=== PATIENT | male | born 1995 | race Caucasian/White ===

== ENCOUNTER 2024-03-26 10:03 | Emergency (ER) | payer BC, OTHER ==
[2024-03-26] MEDS ORDERED: methylPREDNISolone Sod Succ/PF 125 MG/2 ML VIAL ONE (10:25)
[2024-03-26 10:48] LABS: #Basophils 0.01 10x3/uL (0.0-0.2); #Eosinophils 0.19 10x3/uL (0.0-0.5); #Monocytes 0.85 10x3/uL (0.0-1.1); #Neutrophils 5.55 10x3/uL (1.5-8.4); %Basophils 0.1 % (0.0-2.0); %Eosinophils 2.6 % (0.0-6.0); %Lymphocytes 10.3 % (18.0-47.0); %Monocytes 11.5 % (0.0-10.0); %Neutrophils 75.2 % (40.0-75.0); Hematocrit 43.7 % (38.8-50.0); Hemoglobin 14.7 g/dL (13.5-17.5); Mean Corpuscular HGB CONC 33.6 g/dL (32.0-36.0); Mean Corpuscular Hemoglobin 29.5 pg (27.0-33.0); Mean Corpuscular Volume 87.6 fL (81.2-95.1); Mean Platelet Volume 9.6 fL (7.4-10.4); Platelet Count 151 10x3/uL (150-450); Red Blood Cell (RBC) Count 4.99 10x6/uL (4.32-5.72); White Blood Cell (WBC) Count 7.4 10x3/uL (3.5-10.5)
[2024-03-26] MEDS ORDERED: Ipratropium/Albuterol 3 ML NEB ONE (10:48)
[2024-03-26 11:18] LABS: Anion Gap 17 mmol/L (10-20); BUN (Urea Nitrogen) 10 mg/dL (8.9-20.6); Calc. Creatinine Clearance 0 mL/min (70-130); Calcium 9.5 mg/dL (7.8-10.44); Carbon Dioxide 19 mmol/L (22-29); Chloride 103 mmol/L (98-107); Estimated GFR 79; Glucose 124 mg/dL (70-105); Potassium 3.8 mmol/L (3.5-5.1); Sodium 135 mmol/L (136-145)
== END 2024-03-26 11:45 | disposition home or self-care (01) ==
LOC: CSHERS 10:03
DX: J11.1 Influenza due to unidentified influenza virus with other respiratory manifestations (principal); J98.01 Acute bronchospasm; Z87.891 Personal history of nicotine dependence
CPT/HCPCS: 36415; 71045; 80048; 83605; 85025; 87040; 87428; 93005; 94640; 96374; J2919; J7620